=== PATIENT | male | born 1940 | race Caucasian/White ===

== ENCOUNTER 2016-12-11 06:30 | Outpatient (CLI) | payer MEDICARE, OTHER | END 2016-12-11 06:31 | disposition home or self-care (01) | LOC: LAB.R 06:30 | PROVIDERS: ATTEND Podiatrist | DX: L03.031 Cellulitis of right toe (principal) | CPT/HCPCS: 87070; 87205 ==

== ENCOUNTER 2017-03-25 09:10 | Outpatient (CLI) | payer MEDICARE, OTHER ==
--- NOTE | 2017-03-26 11:42 | DEXA Report ---
REVISED: THIS REPORT WAS ORIGINALLY SIGNED ON 03/26/2017 @ 1315. NO CHANGES WERE MADE TO THE REPORT. [facility] WAS RE[facility] ON . DEXA SCAN: 03/25/2017 CLINICAL HISTORY: Long-term prednisone use. History of ileostomy. TECHNIQUE: Dual energy x-ray absorptiometry (DXA) was performed on a [employer] system. Regions measured are the AP spine, femoral neck, and, if needed, forearm. COMPARISON: None. In accordance with the International Society for Clinical Densitometry (ISCD) guidelines, data from previous exams may be reanalyzed using current recommendations and techniques. This is done to allow a more accurate basis for comparison with the current study. FINDINGS The data for the lumbar spine is as follows: REGION BMD (g/cm/cm) T-SCORE Z-SCORE L1 1.119 -0.3 -0.4 L2 1.151 -0.7 -0.8 L3 1.214 -0.2 -0.3 L4 1.189 -0.4 -0.5 TOTAL 1.171 -0.4 -0.5 NOTE: All evaluable vertebrae are used for classification. The data for the hip is as follows: REGION BMD (g/cm/cm) T-SCORE Z-SCORE Neck 0.855 -1.7 -0.7 TOTAL 1.011 -0.6 -0.1 NOTE: The femoral neck or total proximal femur, whichever is lowest, is used for classification. IMPRESSION: BONE MINERAL DENSITY ABOVE IN THIS MALE PATIENT. BASED ON BONE MINERAL DENSITY IN THE FEMORAL NECK FRACTURE RISK IS INCREASED. RECOMMENDATION: Patients with diagnosis of osteoporosis or osteopenia should have regular bone mineral density assessment. For those eligible for Medicare, routine testing is allowed once every 2 years. Testing frequency can be increased for patients who have rapidly progressing disease or for those who are receiving medical therapy to restore bone mass. COMMENT: World Health Organization (WHO) definitions for osteoporosis and osteopenia: NORMAL BMD: T-score at -1.0 or higher, fracture risk is low. OSTEOPENIA BMD: T-score between -1.0 and -2.5, fracture risk is increased. OSTEOPOROSIS BMD: T-score at -2.5 or lower, fracture risk high. National Osteoporosis Foundation recommends: 1. Obtain adequate dietary calcium (at least 1200 mg per day) and vitamin D (400 -800 international units per day). 2. Participate, as appropriate, in regular weightbearing and muscle- strengthening exercise. 3. Avoid tobacco use and reduce alcohol and caffeine intake. 4. For more detailed information see the website at www.NOF.org. MTDD
== END 2017-03-25 09:11 | disposition home or self-care (01) ==
LOC: DI 09:10
PROVIDERS: ATTEND Internal Medicine
DX: M85.88 Other specified disorders of bone density and structure, other site (principal)
CPT/HCPCS: 77080

== ENCOUNTER 2017-07-11 13:10 | Emergency (ER) | payer MEDICARE, OTHER ==
[2017-07-11] MEDS ORDERED: BUFFERED LIDOCAINE 10 ML SYRINGE SUBQ STA (14:52)
--- NOTE | 2017-07-11 14:55 | ED Physician Documentation ---
PD HPI HEAD INJURY - Stated complaint Stated Complaint: HEAD INJ - Chief complaint Chief Complaint: Laceration - History obtained from History obtained from: Patient - History of Present Illness Mechanism of head injury: Other (He is up-to-date on tetanus. He was taking out the [employer] tree and cleaning up after, he tripped on a chair on his patio and fell forward into a railing impacting the left yazidi and forehead with 2 lacerations. Pain is minimal. No loss of consciousness, no other injuries, no anticoagulants.) Review of Systems Constitutional: denies: Fever, Chills GI: denies: Abdominal Pain, Nausea, Vomiting Musculoskeletal: denies: Neck pain, Back pain PD PAST MEDICAL HISTORY - Past Medical History Past Medical History: Yes Cardiovascular: Hypertension Respiratory: Sleep apnea Endocrine/Autoimmune: HyPOthyroidism, Other GI: Ulcerative colitis, Other : Other HEENT: Chronic vision loss, Chronic hearing loss Psych: None - Past Surgical History Past Surgical History: Yes General: Cholecystectomy, Bowel surgery, EGD, Other - Present Medications Home Medications: Ambulatory Orders Medication Instructions Recorded Confirmed Carvedilol [Coreg] 6.25 mg PO DAILY 10/25/13 07/11/17 Levothyroxine Sodium [Synthroid] 175 mcg PO DAILY 10/25/13 07/11/17 Multivitamin [Multivitamins] 1 cap PO DAILY 09/18/15 07/11/17 Pantoprazole [Protonix] 40 mg PO BID 06/30/16 07/11/17 - Allergies Allergies/Adverse Reactions: Allergies Allergy/AdvReac Type Severity Reaction Status Date / Time Penicillins Allergy Severe Respiratory Verified 07/11/17 13:25 Latex, Natural Rubber Allergy Intermediate Itching Verified 07/11/17 13:25 amoxicillin trihydrate * Allergy Unknown Verified 07/11/17 13:25 [From Augmentin] ciprofloxacin [From Cipro] Allergy Unknown Verified 06/30/16 23:35 ciprofloxacin HCl * Allergy Unknown Verified 07/11/17 13:25 [From Cipro] potassium clavulanate * Allergy Unknown Verified 07/11/17 13:25 [From Augmentin] quinine Allergy Unknown Verified 07/11/17 13:25 - Social History Does the pt smoke?: No Smoking Status: Never smoker Does the pt drink ETOH?: No Does the pt have substance abuse?: No - Immunizations Immunizations are current?: Yes - POLST Patient has POLST: No PD ED PE NORMAL - Vitals Vital signs reviewed: Yes - General General: Alert and oriented X 3, No acute distress - HEENT HEENT: PERRL, EOMI, Other (There is a 4 cm vertical laceration over the upper mid forehead, and a 2 cm curved laceration that is a flap over the left yazidi. 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 Eye Opening: Spontaneous Motor: Obeys Commands Verbal: Oriented GCS Score: 15 - Psych Psych: Normal mood, Normal affect Results - Vitals Vitals: Vital Signs - 24 hr 07/11/17 07/11/17 13:23 16:55 Temperature 36.3 C L 36.5 C Heart Rate 79 66 Respiratory 18 18 Rate Blood Pressure 147/90 H 152/80 H O2 Saturation 97 100 Oxygen O2 Source Room air - Rads (name of study) CT Head Radiology: EMP read contemporaneously (NAD) Procedures - Laceration (location) forehead Length in cm: 4 Wound type: Linear Anesthesia: Lidocaine 1%, With bicarb Wound Preparation: Irrigated copiously NS Skin layer closure: Nylon, Running, Size #-0 - enter number (5-0) Other: Tetanus UTD Complexity: Simple Left yazidi/scalp Length in cm: 2 Wound type: Curved Anesthesia: Lidocaine 1%, With bicarb Wound Preparation: Irrigated copiously NS Skin layer closure: Size #-0 - enter number (5-0), Sutures - enter # (3), Other (vicryl) Complexity: Simple Departure - Departure Disposition: 01 Home, Self Care Clinical Impression: Facial laceration Qualifiers: Encounter type: initial encounter Qualified Code(s): S01.81XA - Laceration without foreign body of other part of head, initial encounter Scalp laceration Qualifiers: Encounter type: initial encounter Qualified Code(s): S01.01XA - Laceration without foreign body of scalp, initial encounter Head injury Qualifiers: Encounter type: initial encounter Qualified Code(s): S09.90XA - Unspecified injury of head, initial encounter Condition: Good Record reviewed to determine appropriate education?: Yes Instructions: ED Laceration Facial Sutr Tape Comments: Come back for any signs of infection which would include: Redness, swelling, drainage, increased pain, or fevers. Follow-up with your physician in 7 days for removals of the suture on your forehead, the sutures on the yazidi will dissolve on their own. Your blood pressure was elevated today on check into the emergency department. This does not mean that you have hypertension, it is a common phenomenon to come to the emergency department and have elevated blood pressure. I recommend that you see your primary care physician within the week to have it rechecked when you are feeling better. Discharge Date/Time: 07/11/17 16:54
[2017-07-11] MEDS ORDERED: BUFFERED LIDOCAINE 10 ML SYRINGE ONE (15:00)
[2017-07-11 16:56] VITALS: BP 152/80
--- NOTE | 2017-07-11 16:57 | CT Report ---
EXAM: CT HEAD EXAM DATE: 07/11/2017 03:31 PM. CLINICAL HISTORY: Headache. COMPARISON: None. TECHNIQUE: Multiaxial CT images were obtained from the foramen magnum to the vertex. Reformats: Coron al. IV contrast: None. In accordance with CT protocol optimization, one or more of the following dose reduction techniques w ere utilized for this exam: automated exposure control, adjustment of mA and/or KV based on patient s ize, or use of iterative reconstructive technique. FINDINGS: Parenchyma: No intraparenchymal hemorrhage. No evidence of mass, midline shift, or CT findings of inf arction. Villa-white differentiation is distinct. Extraaxial Spaces: Normal for age. No subdural or epidural collections identified. Ventricles: Normal in size and position. Sinuses and Orbits: Patient has undergone sinus surgery. No acute abnormalities are seen. Bones: No evidence of fracture or calvarial defect. Other: There is mild frontal scalp soft tissue swelling. IMPRESSION: No acute intracranial CT abnormality. [facility] Referring Provider Line: [phone] SITE ID: [id number]
== END 2017-07-11 16:54 | disposition home or self-care (01) ==
LOC: ED 13:10
DX: S01.81XA Laceration without foreign body of other part of head, initial encounter (principal); S01.01XA Laceration without foreign body of scalp, initial encounter; S09.90XA Unspecified injury of head, initial encounter; W01.198A Fall on same level from slipping, tripping and stumbling with subsequent striking against other object, initial encounter; Y93.01 Activity, walking, marching and hiking; Y92.007 Garden or yard of unspecified non-institutional (private) residence as the place of occurrence of the external cause; I10 Essential (primary) hypertension; E03.9 Hypothyroidism, unspecified
CPT/HCPCS: 12001; 12013; 70450; 99283; 99284

== ENCOUNTER 2017-08-26 10:49 | Emergency (ER) | payer MEDICARE, OTHER ==
--- NOTE | 2017-08-26 14:33 | Ultrasound Report ---
LEFT LEG VENOUS DUPLEX: 08/26/2017 CLINICAL INDICATION: Pain, swelling. TECHNIQUE: Real-time sonographic vascular imaging was performed by the special needs child caregiver through the left leg utilizing both color flow and Doppler spectral analysis. Multiple sales representative printing static images were saved for review. FINDINGS: A left lower extremity venous sonogram is performed revealing the common femoral, superficial femoral, profunda femoris, and popliteal veins to be adequately visualized without intraluminal defects. There is normal venous compression, augmentation, phasicity, and spontaneity of venous flow. In the calf, the visualized more cephalad portions of posterior tibial and peroneal veins are grossly compressible, without filling defects. Superficial thrombophlebitis is seen in the left greater saphenous vein below the level of the knee. IMPRESSION: NO EVIDENCE OF DEEP VENOUS THROMBOSIS. SUPERFICIAL THROMBOPHLEBITIS IN THE CALF. TD: 08/26/2017 14:32 MTDMarie
--- NOTE | 2017-08-26 14:43 | ED Physician Documentation ---
History of Present Illness - Stated complaint Stated Complaint: LEFT LEG PAIN - Chief complaint Chief Complaint: Ext Problem - Additonal information Additional information: hx from pt 77 male to ER with l leg pain and swelling hx phlebitis no CP or SOA no injury Review of Systems Constitutional: denies: Fever, Chills Cardiac: denies: Chest pain / pressure Respiratory: denies: Dyspnea Musculoskeletal: reports: Extremity pain, Extremity swelling PD PAST MEDICAL HISTORY - Past Medical History Past Medical History: Yes Cardiovascular: Hypertension Respiratory: Sleep apnea Endocrine/Autoimmune: HyPOthyroidism, Other GI: Ulcerative colitis, Other : Other HEENT: Chronic vision loss, Chronic hearing loss Psych: None - Past Surgical History Past Surgical History: Yes General: Cholecystectomy, Bowel surgery, EGD, Other - Present Medications Home Medications: Ambulatory Orders Medication Instructions Recorded Confirmed Carvedilol [Coreg] 6.25 mg PO DAILY 10/25/13 07/11/17 Levothyroxine Sodium [Synthroid] 175 mcg PO DAILY 10/25/13 07/11/17 Multivitamin [Multivitamins] 1 cap PO DAILY 09/18/15 07/11/17 Pantoprazole [Protonix] 40 mg PO BID 06/30/16 07/11/17 - Allergies Allergies/Adverse Reactions: Allergies Allergy/AdvReac Type Severity Reaction Status Date / Time Penicillins Allergy Severe Respiratory Verified 07/11/17 13:25 Latex, Natural Rubber Allergy Intermediate Itching Verified 07/11/17 13:25 amoxicillin trihydrate * Allergy Unknown Verified 07/11/17 13:25 [From Augmentin] ciprofloxacin [From Cipro] Allergy Unknown Verified 06/30/16 23:35 ciprofloxacin HCl * Allergy Unknown Verified 07/11/17 13:25 [From Cipro] potassium clavulanate * Allergy Unknown Verified 07/11/17 13:25 [From Augmentin] quinine Allergy Unknown Verified 07/11/17 13:25 - Social History Does the pt smoke?: No Smoking Status: Never smoker Does the pt drink ETOH?: No Does the pt have substance abuse?: No - Immunizations Immunizations are current?: Yes - POLST Patient has POLST: No PD ED PE NORMAL - Vitals Vital signs reviewed: Yes - Neck Neck: Supple, no meningeal sign - Cardiac Cardiac: RRR - Respiratory Respiratory: No respiratory distress, Clear bilaterally - Abdomen Abdomen: Soft, Non tender - Derm Derm: Normal color - Extremities Extremities: Other (+ mild edema, some dilated superficial veins medial calf, no popliteal cord, MSV intact) Results - Vitals Vitals: Vital Signs - 24 hr 08/26/17 10:53 Temperature 37.1 C Heart Rate 95 Respiratory 18 Rate Blood Pressure 147/83 H O2 Saturation 98 Oxygen O2 Source Room air Departure - Departure Disposition: 01 Home, Self Care Clinical Impression: Superfic phlebitis-leg Qualifiers: Laterality: left Qualified Code(s): I80.02 - Phlebitis and thrombophlebitis of superficial vessels of left lower extremity Condition: Good Instructions: ED Phlebitis Superficial Follow-Up: Lore Menchaca PA [Primary Care Provider] - (for a recheck next week) Comments: At this point you have some clot in the superficial veins of your leg but no deep vein clot. So you do not to be on blood thinners at this time You should elevate your leg and apply warm compresses for 20 min several times a day. And you should have a repeat ultrasound in a week if the symptoms persist - it is possible for the superficial clots to extend into the deep vein system Forms: Activity restrictions
[2017-08-26 15:01] VITALS: BP 136/78
== END 2017-08-26 15:01 | disposition home or self-care (01) ==
LOC: ED 10:49
DX: I80.02 Phlebitis and thrombophlebitis of superficial vessels of left lower extremity (principal); I10 Essential (primary) hypertension; E03.9 Hypothyroidism, unspecified; Z87.19 Personal history of other diseases of the digestive system
CPT/HCPCS: 99283

== ENCOUNTER 2018-04-14 11:36 | Outpatient (CLI) | payer MEDICARE, OTHER | END 2018-04-14 11:37 | disposition home or self-care (01) | LOC: LAB 11:36 | PROVIDERS: ATTEND Physician Assistant | DX: E03.8 Other specified hypothyroidism (principal) | CPT/HCPCS: 36415; 84443 ==

== ENCOUNTER 2018-09-28 16:22 | Emergency (ER) | payer MEDICARE, OTHER ==
--- NOTE | 2018-09-28 17:38 | XRAY Report ---
Reason: fell off ladder, buttock pain Procedure Date: 09/28/2018 Accession Number: [id number] / [id number] Procedure: XR - Hip w/Pelvis 2-3V RT CPT Code: FULL RESULT: EXAM: RIGHT HIP RADIOGRAPHY EXAM DATE: 09/28/2018 05:12 PM. CLINICAL HISTORY: Fell off ladder, buttock pain. COMPARISON: None. TECHNIQUE: 2 views. FINDINGS: Bones: No acute fracture identified. Joints: Mild degenerative changes. No dislocation. Soft Tissues: Surgical wires noted. IMPRESSION: No acute osseus abnormality. [facility]
--- NOTE | 2018-09-28 17:45 | ED Physician Documentation ---
PD HPI Fall - Stated complaint Stated Complaint: FALL OFF LADDER - Chief complaint Chief Complaint: Trauma Hd/Nk - History obtained from History obtained from: Patient, Family - History of Present Illness Mechanism of injury: Lost balance Fall distance: Less than 5ft (on ladder on lower steps and fell left/backward landing onto buttock then back onto head) Where injury occurred: Home (He remembers falling then felt he awoke on the ground. Went into house and rested for a little while, then told his about the fall. She was concerned about his seeming tired and apparent brief LOC. Otherwise interacting okay.) Timing - onset: Today Injury(ies) location: Head, Other (left gluteal area) Quality of pain: Throbbing, Aching (gluteal area. Minimal pain left side of head with abrasion.) Associated symptoms: LOC. No: AMS, Weakness, Paresthesias, Nausea / vomiting Worsens with: Palpation Similar symptoms before: Has not had sx before Recently seen: Not recently seen Review of Systems Constitutional: denies: Fever, Chills Nose: denies: Rhinorrhea / runny nose, Congestion Throat: denies: Sore throat Cardiac: denies: Chest pain / pressure Respiratory: denies: Cough GI: denies: Abdominal Pain Skin: reports: Abrasion (s) (left side of head) Musculoskeletal: reports: Extremity pain (left gluteal area). denies: Neck pain, Back pain Neurologic: reports: Head injury. denies: Focal weakness, Numbness, Altered mental status, Headache (not diffusely, just sore at abrasion area) PD PAST MEDICAL HISTORY - Past Medical History Past Medical History: Yes Cardiovascular: Hypertension Respiratory: Sleep apnea Endocrine/Autoimmune: HyPOthyroidism, Other GI: Ulcerative colitis, Other : Other HEENT: Chronic vision loss, Chronic hearing loss Psych: None Other Past Medical History: barrets esophagus - Past Surgical History Past Surgical History: Yes General: Cholecystectomy, Bowel surgery, EGD, Other - Present Medications Home Medications: Ambulatory Orders Medication Instructions Recorded Confirmed Carvedilol [Coreg] 6.25 mg PO DAILY 10/25/13 09/23/17 Levothyroxine Sodium [Synthroid] 175 mcg PO DAILY 10/25/13 09/23/17 Multivitamin [Multivitamins] 1 cap PO DAILY 09/18/15 09/23/17 Pantoprazole Sodium 20 mg BID 09/23/17 09/23/17 - Allergies Allergies/Adverse Reactions: Allergies Allergy/AdvReac Type Severity Reaction Status Date / Time Penicillins Allergy Severe Respiratory Verified 09/28/18 16:39 Latex, Natural Rubber Allergy Intermediate Itching Verified 09/28/18 16:39 amoxicillin trihydrate * Allergy Unknown Verified 09/28/18 16:39 [From Augmentin] ciprofloxacin [From Cipro] Allergy Unknown Verified 09/28/18 16:39 ciprofloxacin HCl * Allergy Unknown Verified 09/28/18 16:39 [From Cipro] potassium clavulanate * Allergy Unknown Verified 09/28/18 16:39 [From Augmentin] quinine Allergy Unknown Verified 09/28/18 16:39 - Social History Does the pt smoke?: No Smoking Status: Never smoker Does the pt drink ETOH?: No Does the pt have substance abuse?: No - Immunizations Immunizations are current?: Yes - POLST Patient has POLST: No PD ED PE NORMAL - Vitals Vital signs reviewed: Yes - General General: Alert and oriented X 3, No acute distress, Well developed/nourished - HEENT HEENT: PERRL, EOMI, Pharynx benign, Other (left frontal/parietal area with mild swelling and abrasion. Locally tender. 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 age related changes. ), See rad report pelvic xray Radiology: Prelim report reviewed (no fractures.), See rad report PD MEDICAL DECISION MAKING - ED course Complexity details: reviewed results, considered differential, d/w patient Departure - Departure Disposition: 01 Home, Self Care Clinical Impression: Fall from ladder Qualifiers: Encounter type: initial encounter Qualified Code(s): W11.XXXA - Fall on and from ladder, initial encounter Head contusion Qualifiers: Encounter type: initial encounter Contusion of head detail: scalp Qualified Code(s): S00.03XA - Contusion of scalp, initial encounter Mild concussion Qualifiers: Encounter type: initial encounter Loss of consciousness presence/duration: with LOC of 30 min or less Qualified Code(s): S06.0X1A - Concussion with loss of consciousness of 30 minutes or less, initial encounter Contusion of buttock Qualifiers: Encounter type: initial encounter Qualified Code(s): S30.0XXA - Contusion of lower back and pelvis, initial encounter Condition: Stable Record reviewed to determine appropriate education?: Yes Instructions: ED Concussion Follow-Up: Lore Menchaca PA [Primary Care Provider] - Comments: Tylenol or ibuprofen if needed for pains. There is no signs of bleeding in the head space on your CT scan. It does sound like he had a mild concussion and expect some headaches and a little lightheaded for a day or 2. Discharge Date/Time: 09/28/18 19:40
[2018-09-28] MEDS ORDERED: ACETAMINOPHEN 325 MG TABLET PO STA (17:57)
--- NOTE | 2018-09-28 19:04 | CT Report ---
Reason: fall short distance from ladder; struck head, LOC Procedure Date: 09/28/2018 Accession Number: [id number] / [id number] Procedure: CT - HEAD WO CPT Code: FULL RESULT: EXAM: CT HEAD EXAM DATE: 09/28/2018 06:18 PM. CLINICAL HISTORY: Fall short distance from ladder; struck head, LOC. COMPARISON: HEAD W/O 07/11/2017 3:26 PM. TECHNIQUE: Multiaxial CT images were obtained from the foramen magnum to the vertex. Reformats: Sagittal and coronal. IV contrast: None. In accordance with CT protocol optimization, one or more of the following dose reduction techniques were utilized for this exam: automated exposure control, adjustment of mA and/or KV based on patient size, or use of iterative reconstructive technique. FINDINGS: Parenchyma: There is mild to moderate nonfocal periventricular white matter hypodensity. Negative for acute intracranial hemorrhage. There is no midline shift or mass-effect. Extraaxial Spaces: No subdural or epidural collections identified. Ventricles: Symmetric in size and normal in position. Sinuses and Orbits: There is mild ethmoid sinus mucosal thickening. There are findings of previous sinus surgery. Mastoid sinuses are clear. No air-fluid levels. Bones: No evidence of fracture or calvarial defect. Other: None. IMPRESSION: 1. Negative for an acute or focal intracranial abnormality. 2. Mild to moderate nonfocal white matter disease. 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 [facility]
[2018-09-28 19:29] VITALS: BP 164/97
== END 2018-09-28 19:40 | disposition home or self-care (01) ==
LOC: ED 16:22
DX: S00.03XA Contusion of scalp, initial encounter (principal); S06.0X1A Concussion with loss of consciousness of 30 minutes or less, initial encounter; S30.0XXA Contusion of lower back and pelvis, initial encounter; S00.01XA Abrasion of scalp, initial encounter; W11.XXXA Fall on and from ladder, initial encounter; Y92.009 Unspecified place in unspecified non-institutional (private) residence as the place of occurrence of the external cause; I10 Essential (primary) hypertension; E03.9 Hypothyroidism, unspecified
CPT/HCPCS: 70450; 73502; 99283; 99284; A9270

== ENCOUNTER 2020-07-24 08:00 | Outpatient (CLI) | payer MEDICARE, OTHER ==
[2020-07-24 17:24] LABS: BASOPHILS # (AUTO) 0.1 10^3/uL (0.0-0.1); EOSINOPHILS # (AUTO) 0.4 10^3/uL (0.0-0.7); EOSINOPHILS % (AUTO) 5.9 %; HGB - HEMOGLOBIN 13.7 g/dL (14.0-18.0); LYMPHOCYTES # (AUTO) 2.1 10^3/uL (1.5-3.5); LYMPHOCYTES % (AUTO) 29.5 %; MEAN CORPUSCULAR HEMOGLOBIN 32.8 pg (27.0-31.0); MEAN CORPUSCULAR HGB CONC 32.8 g/dL (32.0-36.0); MEAN PLATELET VOLUME 10.9 fL (7.4-11.4); MONOCYTES # (AUTO) 0.7 10^3/uL (0.0-1.0); MONOCYTES % (AUTO) 9.9 %; NEUTROPHILS # (AUTO) 3.7 10^3/uL (1.5-6.6); NEUTROPHILS % (AUTO) 53.4 %; PLT - PLATELET COUNT 147 10^3/uL (130-450); RED BLOOD COUNT 4.18 10^6/uL (4.70-6.10); RED CELL DISTRIBUTION WIDTH 14.1 % (12.0-15.0)
[2020-07-24 17:53] LABS: URIC ACID 6.3 mg/dL (2.6-7.2)
[2020-07-24 17:55] LABS: FERRITIN 23.3 ng/mL (23.9-336.2)
== END 2020-07-24 23:59 | disposition home or self-care (01) ==
LOC: LAB 08:00
PROVIDERS: ATTEND Registered Nurse
DX: D69.6 Thrombocytopenia, unspecified (principal); M10.9 Gout, unspecified; D50.8 Other iron deficiency anemias
CPT/HCPCS: 36415; 82607; 82728; 82746; 83540; 84466; 84550; 85025

== ENCOUNTER 2020-11-02 19:23 | Emergency (ER) | payer MEDICARE, OTHER ==
[2020-11-02 20:03] LABS: BASOPHILS % (AUTO) 0.2 %; EOSINOPHILS % (AUTO) 0.1 %; HCT - HEMATOCRIT 42.2 % (42.0-52.0); HGB - HEMOGLOBIN 14.4 g/dL (14.0-18.0); LYMPHOCYTES # (AUTO) 1.4 10^3/uL (1.5-3.5); LYMPHOCYTES % (AUTO) 14.1 %; MEAN CORPUSCULAR HEMOGLOBIN 32.8 pg (27.0-31.0); MEAN CORPUSCULAR HGB CONC 34.1 g/dL (32.0-36.0); MEAN CORPUSCULAR VOLUME 96.1 fL (80.0-94.0); MEAN PLATELET VOLUME 10.1 fL (7.4-11.4); MONOCYTES # (AUTO) 0.4 10^3/uL (0.0-1.0); MONOCYTES % (AUTO) 4.2 %; NEUTROPHILS # (AUTO) 8.1 10^3/uL (1.5-6.6); PLT - PLATELET COUNT 153 10^3/uL (130-450); RED BLOOD COUNT 4.39 10^6/uL (4.70-6.10); RED CELL DISTRIBUTION WIDTH 13.5 % (12.0-15.0)
[2020-11-02 20:18] LABS: ALBUMIN 3.9 g/dL (3.2-5.5); ALBUMIN/GLOBULIN RATIO 1.1 (1.0-2.2); BILIRUBIN,TOTAL 1.1 mg/dL (0.2-1.0); CALCIUM 9.2 mg/dL (8.5-10.3); CREATININE 1.6 mg/dL (0.6-1.2); POTASSIUM 4.1 mmol/L (3.5-5.0); TOTAL PROTEIN 7.4 g/dL (6.7-8.2)
[2020-11-02] MEDS ORDERED: carvediloL 12.5 MG TABLET PO STA (22:29)
[2020-11-02] MEDS ORDERED: ONDANSETRON 4 MG/2 ML VIAL IVP STA (22:47)
[2020-11-02] MEDS ORDERED: MECLIZINE 12.5 MG TABLET PO STA (22:48)
[2020-11-02] MEDS ORDERED: ONDANSETRON ODT 4 MG TABLET TL STA (23:22)
[2020-11-03 00:07] VITALS: BP 167/85
--- NOTE | 2020-11-03 00:29 | ED Physician Documentation ---
History of Present Illness - Stated complaint Stated Complaint: DIZZINESS/VOMITING - Chief complaint Chief Complaint: Neuro - History obtained from History obtained from: Patient - Additonal information Additional information: 80-year-old man with past medical history of ulcerative colitis status post colostomy 40 years ago, high blood pressure, hypothyroidism, GERD, chronic dizziness over the past year, presents with worsening dizziness over the past couple of days associated with nausea and vomiting. He states that last night he got up to go to the bathroom and the room was spinning. He was able to complete his trip but then this morning he was still dizzy. He has had 6 episodes of nonbloody nonbilious nausea and vomiting today associated with sensation of dizziness. he also states that his colostomy bag has had reduced output. He does endorse taking less orally. Review of Systems Ten Systems: 10 systems reviewed and negative Constitutional: denies: Fever, Chills Cardiac: denies: Chest pain / pressure Respiratory: denies: Dyspnea GI: reports: Nausea, Vomiting. denies: Abdominal Pain, Abdominal Swelling, Bloody / black stool : denies: Dysuria, Frequency Neurologic: denies: Generalized weakness PD PAST MEDICAL HISTORY - Past Medical History Past Medical History: Yes Cardiovascular: Hypertension Respiratory: Sleep apnea Endocrine/Autoimmune: HyPOthyroidism, Other GI: Ulcerative colitis, Other : Other HEENT: Chronic vision loss, Chronic hearing loss Psych: None - Past Surgical History Past Surgical History: Yes General: Cholecystectomy, Bowel surgery, EGD, Other - Present Medications Home Medications: Ambulatory Orders Medication Instructions Recorded Confirmed Levothyroxine Sodium [Synthroid] 175 mcg PO DAILY 10/25/13 11/02/20 carvediloL [Coreg] 6.25 mg PO DAILY 10/25/13 11/02/20 Multivitamin [Multivitamins] 1 cap PO DAILY 09/18/15 11/02/20 Pantoprazole Sodium 20 mg BID 09/23/17 11/02/20 Cholecalciferol (Vitamin D3) 1,250 11/02/20 [Vitamin D3] Cyanocobalamin (Vitamin B-12) 1,000 11/02/20 [Vitamin B-12] Meclizine [Antivert] 25 mg PO Q6H PRN #30 tablet 11/03/20 Ondansetron Odt [Zofran Odt] 4 mg TL Q6H PRN #10 tablet 11/03/20 - Allergies Allergies/Adverse Reactions: Allergies Allergy/AdvReac Type Severity Reaction Status Date / Time Penicillins Allergy Severe Respiratory Verified 11/02/20 19:31 Latex, Natural Rubber Allergy Intermediate Itching Verified 11/02/20 19:31 amoxicillin trihydrate * Allergy Unknown Verified 11/02/20 19:31 [From Augmentin] ciprofloxacin [From Cipro] Allergy Unknown Verified 11/02/20 19:31 ciprofloxacin HCl * Allergy Unknown Verified 11/02/20 19:31 [From Cipro] potassium clavulanate * Allergy Unknown Verified 11/02/20 19:31 [From Augmentin] quinine Allergy Unknown Verified 11/02/20 19:31 - Social History Does the pt smoke?: No Smoking Status: Never smoker Does the pt drink ETOH?: No Does the pt have substance abuse?: No - Immunizations Immunizations are current?: Yes - POLST Patient has POLST: No PD ED PE NORMAL - Vitals Vital signs reviewed: Yes - General General: Alert and oriented X 3, No acute distress, Well developed/nourished - HEENT HEENT: Atraumatic, PERRL, EOMI - Neck Neck: Supple, no meningeal sign - Cardiac Cardiac: RRR - Respiratory Respiratory: No respiratory distress, Clear bilaterally - Abdomen Abdomen: Normal bowel sounds, Soft, Non tender, Non distended, Other (colostomy pink with brown stool extruding from it. ) - Derm Derm: Normal color - Extremities Extremities: No deformity - Neuro Neuro: Alert and oriented X 3, pot puncher 2-12 intact, No motor deficit, No sensory deficit, Normal speech, Other (ambulatory without difficulty) - Psych Psych: Normal mood, Normal affect Results - Vitals Vitals: Vital Signs - 24 hr 11/02/20 11/02/20 11/02/20 19:31 19:45 22:02 Temperature 36.6 C Heart Rate 88 76 81 Heart Rate [ Sitting] Heart Rate [ Standing] Heart Rate [ Supine] Respiratory 18 15 14 Rate Blood Pressure 151/79 H 154/86 H 153/85 H Blood Pressure [Sitting] Blood Pressure [Standing] Blood Pressure [Supine] O2 Saturation 100 100 97 11/02/20 11/02/20 11/03/20 22:06 22:43 00:00 Temperature 36.8 C Heart Rate 83 70 Heart Rate [ 86 Sitting] Heart Rate [ 88 Standing] Heart Rate [ 75 Supine] Respiratory 17 20 Rate Blood Pressure 158/81 H 167/85 H Blood Pressure 165/96 H [Sitting] Blood Pressure 153/85 H [Standing] Blood Pressure 169/90 H [Supine] O2 Saturation 98 96 11/03/20 00:50 Temperature Heart Rate Heart Rate [ Sitting] Heart Rate [ Standing] Heart Rate [ Supine] Respiratory 16 Rate Blood Pressure Blood Pressure [Sitting] Blood Pressure [Standing] Blood Pressure [Supine] O2 Saturation Oxygen O2 Source Room air - Labs Labs: Laboratory Tests 11/02/20 11/02/20 19:58 19:58 WBC 10.0 RBC 4.39 L Hgb 14.4 Hct 42.2 MCV 96.1 H MCH 32.8 H MCHC 34.1 RDW 13.5 Plt Count 153 MPV 10.1 Neut # (Auto) 8.1 H Lymph # (Auto) 1.4 L [place] # (Auto) 0.4 Eos # (Auto) 0.0 Baso # (Auto) 0.0 Absolute Nucleated RBC 0.00 Nucleated RBC % 0.0 Sodium 138 Potassium 4.1 Chloride 103 Carbon Dioxide 26 Anion Gap 9.0 BUN 30 H Creatinine 1.6 H Estimated GFR (MDRD) 42 L Glucose 117 H Calcium 9.2 Total Bilirubin 1.1 H AST 27 ALT 18 Alkaline Phosphatase 69 Total Protein 7.4 Albumin 3.9 Globulin 3.5 Albumin/Globulin Ratio 1.1 PD MEDICAL DECISION MAKING - ED course ED course: 80-year-old man presented with vertiginous-like symptoms and nausea, improved with meclizine and oral Zofran. He has a completely normal neurologic exam and is now asymptomatic. Strict return precautions given. Patient will follow up with his primary doctor. Departure - Departure Disposition: 01 Home, Self Care Clinical Impression: Vertigo, Nausea Condition: Good Instructions: ED Vertigo Unspecified Prescriptions: Meclizine [Antivert] 25 mg PO Q6H PRN #30 tablet PRN Reason: Vertigo Ondansetron Odt [Zofran Odt] 4 mg TL Q6H PRN #10 tablet PRN Reason: Nausea / Vomiting Comments: You were seen in the emergency department for dizziness and nausea. You were given meclizine and zofran in the emergency department with improvement. We also did labwork and an ekg that did not have alarming findings. Please follow up with your primary doctor this week. You may benefit from evaluation by an ENT. Return to the Emergency department if you experience any new or worsening symptoms or have other concerns. [facility] (ENT) [address] [address] ~23.5 de Discharge Date/Time: 11/03/20 00:51
== END 2020-11-03 00:51 | disposition home or self-care (01) ==
LOC: ED 19:23
DX: R42 Dizziness and giddiness (principal); R11.2 Nausea with vomiting, unspecified; Z93.3 Colostomy status; Z87.19 Personal history of other diseases of the digestive system; I45.10 Unspecified right bundle-branch block; I10 Essential (primary) hypertension; K21.9 Gastro-esophageal reflux disease without esophagitis; E03.9 Hypothyroidism, unspecified
CPT/HCPCS: 36415; 80053; 85025; 93005; 99283; 99284; A9270; Q0162

== ENCOUNTER 2020-11-08 14:00 | Outpatient (CLI) | payer MEDICARE, OTHER ==
--- NOTE | 2020-11-08 17:05 | XRAY Report ---
PROCEDURE: Sacrum/Coccyx INDICATIONS: COCCYX PAIN TECHNIQUE: 3 views of the sacrum and coccyx acquired. COMPARISON: None FINDINGS: Bones: No fractures or dislocations. No suspicious bony lesions. Soft tissues: Visualized bowel gas pattern is normal. No suspicious soft tissue densities. IMPRESSION: No trauma is found, no evidence of osteolytic or blastic bone lesions involving the pelvis in the are a included on this study is seen. MR scanning is generally considered the gold standard for accurate assessment of coccygeal and sacral pain. Follow-up by MRI may be warranted. Reviewed by: Gamal Ann MD on 11/08/2020 5:04 PM PDT Approved by: Gamal Ann MD on 11/08/2020 5:04 PM PDT Station ID: [id number]
== END 2020-11-08 14:01 | disposition home or self-care (01) ==
LOC: DI 14:00
PROVIDERS: ATTEND Nurse Practitioner Family
DX: M53.3 Sacrococcygeal disorders, not elsewhere classified (principal)

== ENCOUNTER 2020-11-22 08:56 | Outpatient (CLI) | payer MEDICARE, OTHER ==
--- NOTE | 2020-11-22 16:25 | MRI Report ---
PROCEDURE: Brain W/O INDICATIONS: DIZZINESS, VERTIGO TECHNIQUE: Noncontrast axial T1 spin echo, axial T2 fast spin echo, sagittal and axial FLAIR, coronal T2 fast sp in echo, axial gradient echo, axial diffusion and ADC through the brain. COMPARISON: None. FINDINGS: Image quality: Excellent. CSF Spaces: Basal cisterns are patent. No extra-axial fluid collections. Ventricles are normal in size and shape. Brain: No intracranial masses or hemorrhage. There is mild to moderate diffuse volume loss. There i s moderate periventricular and subcortical white matter chronic microvascular ischemic change. Villa/white matter interface is normal. Brainstem appears normal. Diffusion-weighted images demonstr ate no acute ischemic insult. No chronic ischemic insults. Normal intravascular flow voids are pres ent. Skull and face: Calvarium has normal marrow signal. Orbits appear normal. Sinuses: Sinuses and mastoids are clear. Prior functional endoscopic sinus surgery. IMPRESSION: 1. No acute intracranial disease process. 2. No areas of acute or chronic infarction. 3. No abnormal intracranial mass or mass effect. 4. Mild to moderate diffuse cerebral volume loss. 5. Moderate chronic microvascular ischemic changes. Reviewed by: Becka Chisholm MD, PhD on 11/22/2020 4:23 PM PDT Approved by: Becka Chisholm MD, PhD on 11/22/2020 4:23 PM PDT Station ID: [id number]
== END 2020-11-22 08:57 | disposition home or self-care (01) ==
LOC: DI 08:56
PROVIDERS: ATTEND Registered Nurse
DX: R42 Dizziness and giddiness (principal)

== ENCOUNTER 2021-02-01 07:00 | Outpatient (CLI) | payer MEDICARE, OTHER | END 2021-02-01 23:59 | disposition home or self-care (01) | LOC: LAB.R 07:00 | PROVIDERS: ATTEND Podiatrist | DX: L89.892 Pressure ulcer of other site, stage 2 (principal) | CPT/HCPCS: 87070; 87077; 87181; 87205 ==

== ENCOUNTER 2021-02-01 17:00 | Outpatient (CLI) | payer MEDICARE, OTHER ==
--- NOTE | 2021-02-01 22:48 | XRAY Report ---
PROCEDURE: Toe(s) RT INDICATIONS: 2ND TOE ULCER TECHNIQUE: 3 views of the second toe acquired. COMPARISON: Radiographs 03/14/2016 FINDINGS: Bones: No acute fractures or dislocations. No suspicious bony lesions. No definite focal cortical destruction is seen to suggest osteomyelitis radiographically. Degenerative changes are seen in the t oes and at the first metatarsophalangeal joint. Soft tissues: No suspicious soft tissue densities. IMPRESSION: No focal cortical obstruction is seen to suggest osteomyelitis radiographically. If symptoms persist or there is continued clinical concern, MRI may be obtained for more sensitive evaluation. Reviewed by: Marcos Navarro MD on 02/01/2021 10:47 PM PDT Approved by: Marcos Navarro MD on 02/01/2021 10:47 PM PDT Station ID: [id number]
== END 2021-02-01 17:01 | disposition home or self-care (01) ==
LOC: DI 17:00
PROVIDERS: ATTEND Podiatrist
DX: L97.909 Non-pressure chronic ulcer of unspecified part of unspecified lower leg with unspecified severity (principal); L89.892 Pressure ulcer of other site, stage 2
CPT/HCPCS: 87070; 87077; 87181; 87205

== ENCOUNTER 2021-08-08 14:43 | Outpatient (CLI) | payer MEDICARE, OTHER ==
[2021-08-08 14:58] LABS: BASOPHILS # (AUTO) 0.1 10^3/uL (0.0-0.1); BASOPHILS % (AUTO) 0.8 %; EOSINOPHILS # (AUTO) 0.3 10^3/uL (0.0-0.7); EOSINOPHILS % (AUTO) 3.6 %; HCT - HEMATOCRIT 43.1 % (42.0-52.0); LYMPHOCYTES # (AUTO) 1.5 10^3/uL (1.5-3.5); LYMPHOCYTES % (AUTO) 21.5 %; MEAN CORPUSCULAR HGB CONC 32.5 g/dL (32.0-36.0); MEAN CORPUSCULAR VOLUME 98.6 fL (80.0-94.0); MEAN PLATELET VOLUME 10.2 fL (7.4-11.4); MONOCYTES # (AUTO) 0.7 10^3/uL (0.0-1.0); MONOCYTES % (AUTO) 10.3 %; NEUTROPHILS # (AUTO) 4.5 10^3/uL (1.5-6.6); NEUTROPHILS % (AUTO) 63.4 %; PLT - PLATELET COUNT 144 10^3/uL (130-450); RED BLOOD COUNT 4.37 10^6/uL (4.70-6.10); RED CELL DISTRIBUTION WIDTH 13.9 % (12.0-15.0); WHITE BLOOD COUNT 7.2 x10^3/uL (4.8-10.8)
[2021-08-08 15:28] LABS: THYROID STIMULATING HORMONE 0.68 uIU/mL (0.34-5.60)
[2021-08-08 15:36] LABS: FERRITIN 10.9 ng/mL (23.9-336.2)
[2021-08-08 15:41] LABS: ALBUMIN 3.9 g/dL (3.2-5.5); ALBUMIN/GLOBULIN RATIO 1.1 (1.0-2.2); BILIRUBIN,TOTAL 0.5 mg/dL (0.2-1.0); CALCIUM 9.3 mg/dL (8.5-10.3); CREATININE 1.7 mg/dL (0.6-1.2); POTASSIUM 4.7 mmol/L (3.5-5.0); TOTAL PROTEIN 7.3 g/dL (6.7-8.2); URIC ACID 5.1 mg/dL (2.6-7.2)
== END 2021-08-08 14:44 | disposition home or self-care (01) ==
LOC: LAB 14:43
PROVIDERS: ATTEND Registered Nurse
DX: I10 Essential (primary) hypertension (principal); D69.6 Thrombocytopenia, unspecified; M10.9 Gout, unspecified; E03.9 Hypothyroidism, unspecified
CPT/HCPCS: 36415; 80053; 82607; 82728; 82746; 83540; 84443; 84466; 84550; 85025

== ENCOUNTER 2022-01-17 10:43 | Outpatient (CLI) | payer MEDICARE, OTHER ==
[2022-01-17 10:58] LABS: BASOPHILS % (AUTO) 0.5 %; EOSINOPHILS # (AUTO) 0.4 10^3/uL (0.0-0.7); EOSINOPHILS % (AUTO) 5.5 %; HCT - HEMATOCRIT 40.8 % (42.0-52.0); HGB - HEMOGLOBIN 12.9 g/dL (14.0-18.0); LYMPHOCYTES # (AUTO) 1.5 10^3/uL (1.5-3.5); LYMPHOCYTES % (AUTO) 19.1 %; MEAN CORPUSCULAR HEMOGLOBIN 31.9 pg (27.0-31.0); MEAN CORPUSCULAR HGB CONC 31.6 g/dL (32.0-36.0); MEAN PLATELET VOLUME 10.5 fL (7.4-11.4); MONOCYTES # (AUTO) 0.6 10^3/uL (0.0-1.0); MONOCYTES % (AUTO) 7.5 %; NEUTROPHILS # (AUTO) 5.4 10^3/uL (1.5-6.6); NEUTROPHILS % (AUTO) 66.7 %; PLT - PLATELET COUNT 166 10^3/uL (130-450); RED BLOOD COUNT 4.04 10^6/uL (4.70-6.10); RED CELL DISTRIBUTION WIDTH 14.6 % (12.0-15.0)
[2022-01-17 11:22] LABS: % IRON SATURATION 22 % (20-50); IRON 80 ug/dL (45-182); TOTAL IRON BINDING CAPACITY 370 ug/dL (250-450); TRANSFERRIN 264 mg/dL (180-329)
[2022-01-17 11:24] LABS: CRP - C-REACTIVE PROTEIN < 1.0 mg/dL (0-1.0)
[2022-01-17 11:32] LABS: THYROID STIMULATING HORMONE 5.19 uIU/mL (0.34-5.60)
[2022-01-17 11:39] LABS: FERRITIN 23.1 ng/mL (23.9-336.2)
== END 2022-01-17 10:44 | disposition home or self-care (01) ==
LOC: LAB 10:43
PROVIDERS: ATTEND Registered Nurse
DX: M25.50 Pain in unspecified joint (principal); D69.6 Thrombocytopenia, unspecified; E03.9 Hypothyroidism, unspecified
CPT/HCPCS: 36415; 82607; 82728; 82746; 83540; 84443; 84466; 85025; 85651; 86140

== ENCOUNTER 2022-04-04 13:25 | Outpatient (CLI) | payer MEDICARE, OTHER | END 2022-04-04 13:26 | disposition home or self-care (01) | LOC: LAB 13:25 | PROVIDERS: ATTEND Registered Nurse | DX: M35.3 Polymyalgia rheumatica (principal) | CPT/HCPCS: 36415; 85651; 86140 ==

== ENCOUNTER 2022-05-08 10:32 | Outpatient (CLI) | payer MEDICARE, OTHER | END 2022-05-08 10:33 | disposition home or self-care (01) | LOC: LAB 10:32 | PROVIDERS: ATTEND Registered Nurse | DX: M35.3 Polymyalgia rheumatica (principal) | CPT/HCPCS: 36415; 85651; 86140 ==

== ENCOUNTER 2022-07-17 15:40 | Outpatient (CLI) | payer MEDICARE, OTHER | END 2022-07-17 15:41 | disposition home or self-care (01) | LOC: LAB 15:40 | PROVIDERS: ATTEND Registered Nurse | DX: M35.3 Polymyalgia rheumatica (principal) | CPT/HCPCS: 36415; 85651; 86140 ==

== ENCOUNTER 2022-08-21 10:16 | Outpatient (CLI) | payer MEDICARE, OTHER | END 2022-08-21 10:17 | disposition home or self-care (01) | LOC: LAB 10:16 | PROVIDERS: ATTEND Registered Nurse | DX: M35.3 Polymyalgia rheumatica (principal) | CPT/HCPCS: 36415; 85651; 86140 ==

== ENCOUNTER 2022-08-28 10:14 | Outpatient (CLI) | payer MEDICARE, OTHER ==
--- NOTE | 2022-08-28 15:45 | XRAY Report ---
PROCEDURE: Toe(s) RT INDICATIONS: EVAL FOR OSETOMYELITIS TECHNIQUE: 3 views of the right toe(s) acquired. COMPARISON: 02/01/2021 FINDINGS: Bones: No fractures or dislocations. There are moderate degenerative changes at the first metatarsal phalangeal joint. Possible cortical loss along the distal lateral aspect of the first phalanx tuft. No definite deep erosive changes. No periostitis. No suspicious bony lesions. Soft tissues: No suspicious soft tissue densities. No soft tissue gas. IMPRESSION: 1. Subtle, questionable loss along the lateral tuft of the first distal phalanx. Correlate with ulcer site. 2. No definite periostitis or soft tissue gas. Reviewed by: Shweta Curtis MD on 08/28/2022 3:44 PM PST Approved by: Shweta Curtis MD on 08/28/2022 3:44 PM PST Station ID: [id number]
== END 2022-08-28 10:15 | disposition home or self-care (01) ==
LOC: DI 10:14
PROVIDERS: ATTEND Family Medicine
DX: G90.09 Other idiopathic peripheral autonomic neuropathy (principal)

== ENCOUNTER 2022-09-04 10:15 | Outpatient (CLI) | payer MEDICARE, OTHER ==
[2022-09-04 10:47] LABS: BILIRUBIN,URINE NEGATIVE (NEGATIVE); GLUCOSE, URINE (UA) NEGATIVE (NEGATIVE); KETONES,URINE (UA) NEGATIVE (NEGATIVE); LEUKOCYTE ESTERASE, URINE NEGATIVE (NEGATIVE); NITRITE,URINE NEGATIVE (NEGATIVE); OCCULT BLOOD,URINE NEGATIVE (NEGATIVE); PROTEIN,URINE NEGATIVE (NEGATIVE); UROBILINOGEN,URINE 0.2 (NORMAL) E.U./dL (NORMAL)
[2022-09-04 10:53] LABS: CLARITY,URINE CLEAR (CLEAR)
== END 2022-09-04 10:16 | disposition home or self-care (01) ==
LOC: LAB 10:15
PROVIDERS: ATTEND Registered Nurse
DX: R39.15 Urgency of urination (principal)
CPT/HCPCS: 81003; 84153; 87077; 87086; 87181

== ENCOUNTER 2022-09-26 10:54 | Outpatient (CLI) | payer MEDICARE, OTHER | END 2022-09-26 10:55 | disposition home or self-care (01) | LOC: LAB 10:54 | PROVIDERS: ATTEND Registered Nurse | DX: M35.3 Polymyalgia rheumatica (principal) | CPT/HCPCS: 36415; 85651; 86140 ==

== ENCOUNTER 2022-10-28 12:17 | Outpatient (CLI) | payer MEDICARE, OTHER ==
[2022-10-28 12:34] LABS: CREATININE 2.6 mg/dL (0.6-1.2); POTASSIUM 4.5 mmol/L (3.5-5.0)
== END 2022-10-28 12:18 | disposition home or self-care (01) ==
LOC: LAB 12:17
PROVIDERS: ATTEND Family Medicine
DX: Z79.2 Long term (current) use of antibiotics (principal)
CPT/HCPCS: 36415; 80048

== ENCOUNTER 2022-11-20 10:15 | Outpatient (CLI) | payer MEDICARE, OTHER | END 2022-11-20 10:16 | disposition home or self-care (01) | LOC: LAB 10:15 | PROVIDERS: ATTEND Registered Nurse | DX: R39.15 Urgency of urination (principal) | CPT/HCPCS: 36415; 84153 ==

== ENCOUNTER 2022-12-15 11:14 | Outpatient (CLI) | payer MEDICARE, OTHER | END 2022-12-15 11:15 | disposition home or self-care (01) | LOC: LAB 11:14 | PROVIDERS: ATTEND Registered Nurse | DX: M35.3 Polymyalgia rheumatica (principal) | CPT/HCPCS: 36415; 85651; 86140 ==

== ENCOUNTER 2023-10-22 12:06 | Outpatient (CLI) | payer MEDICARE, OTHER | END 2023-10-22 12:07 | disposition home or self-care (01) | LOC: LAB 12:06 | PROVIDERS: ATTEND Family Medicine | DX: E87.5 Hyperkalemia (principal); T37.0X5A Adverse effect of sulfonamides, initial encounter; L27.0 Generalized skin eruption due to drugs and medicaments taken internally ==

== ENCOUNTER 2024-02-29 15:43 | Outpatient (CLI) | payer MEDICARE, OTHER ==
--- NOTE | 2024-03-01 09:31 | XRAY Report ---
PROCEDURE: Foot 1-2V RT INDICATIONS: TOE INFECTION TECHNIQUE: 2 views of the foot were acquired. COMPARISON: 05/26/2023, MRI 08/13/2023 FINDINGS: Bones: No acute fractures. 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 Moderate asymmetric fir st MTP joint space loss and lateral spur formation. No visible cortical erosion or periostitis. Smal l plantar calcaneal spurs. No suspicious bony lesions. Soft tissues: No tibiotalar joint effusion. Achilles tendon appears normal. No soft tissue gas or radiodense foreign bodies. IMPRESSION: No foreign bodies or soft tissue gas in the third digit. No radiographic evidence of underlying osteomyelitis although radiographs are insensitive. 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 Reviewed by: Shweta Curtis MD on 03/01/2024 9:30 AM PDT Approved by: Shweta Curtis MD on 03/01/2024 9:30 AM PDT Station ID: [id number]
== END 2024-02-29 15:44 | disposition home or self-care (01) ==
LOC: DI 15:43
PROVIDERS: ATTEND Nurse Practitioner Family
DX: L08.9 Local infection of the skin and subcutaneous tissue, unspecified (principal); M19.071 Primary osteoarthritis, right ankle and foot; Z12.5 Encounter for screening for malignant neoplasm of prostate
CPT/HCPCS: 36415; 73620; G0103; 84153

== ENCOUNTER 2024-03-10 08:00 | Outpatient (CLI) | payer MEDICARE, OTHER | END 2024-03-10 23:59 | disposition home or self-care (01) | LOC: LAB 08:00 | PROVIDERS: ATTEND Nurse Practitioner Family | DX: L08.9 Local infection of the skin and subcutaneous tissue, unspecified (principal) | CPT/HCPCS: 87070; 87077; 87181; 87205 ==

== ENCOUNTER 2024-03-11 14:10 | Outpatient (CLI) | payer MEDICARE, OTHER ==
[2024-03-11] MEDS ORDERED: GADOTERATE MEGLUMINE 10 MMOL/20 ML VIAL ONE (15:26)
[2024-03-11 15:47] LABS: CREATININE 2.1 mg/dL (0.6-1.3)
--- NOTE | 2024-03-11 17:40 | MRI Report ---
PROCEDURE: Foot RT W/WO INDICATIONS: OSTEOMYELITIS OF FOOT CONTRAST: CLARISCAN 17.4 ML TECHNIQUE: Noncontrast sagittal T1 spin echo and T2 fast spin echo with fat saturation, long-axis T1 spin echo a nd T2 fast spin echo with fat saturation; short-axis T1 spin echo, proton density fast spin echo, and T2 fast spin echo with fat saturation through the forefoot. Post-contrast short axis, long axis, an d sagittal T1 spin echo with fat saturation through the forefoot. COMPARISON: 08/13/2023 and right foot radiograph dated 02/29/2024, 05/26/2023. FINDINGS: Image quality: Excellent. Bones and joints: Edema involving third distal phalangeal tuft is seen significantly decreased in ext ent compared to 08/13/2023 study suggestive of healing osteomyelitis and small amount of residual disea se. Heterogeneous contrast enhancement is noted at the area of edema. No new area of abnormal marrow signal or enhancement. No acute fracture or dislocation. Osteoarthritic changes are noted throughout midfoot and forefoot most notably involving first MTP joint unchanged from prior study.. Soft tissues: There is mild soft tissue swelling around distal portion of third toe. No discrete uter ine no peripherally enhancing fluid collection is seen. No enhancing soft tissue mass. Mild edema in the visualized plantar foot muscles are seen suggestive of mild myositis. No intramuscular fluid ken ection or enhancing mass. Extensor and flexor tendons are intact. Principal Lisfranc ligament is inta ct. IMPRESSION: 1. Suggestion of residual osteomyelitis involving third distal phalangeal tuft and distal shaft impro giulia compared to 08/13/2023 study. No pathologic fracture. No new area of osteomyelitis. 2. 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 No metatarsal st ress fractures. 3. Cellulitis involving distal portion of third toe. Mild myositis involving plantar foot muscles. No discrete drainable abscess collection. No enhancing soft tissue mass. Reviewed by: Lenin Chance MD on 03/11/2024 5:38 PM PDT Approved by: Lenin Chance MD on 03/11/2024 5:38 PM PDT Station ID: [id number]
== END 2024-03-11 14:11 | disposition home or self-care (01) ==
LOC: LAB 14:10
PROVIDERS: ATTEND Nurse Practitioner Family
DX: M86.8X7 Other osteomyelitis, ankle and foot (principal); M19.071 Primary osteoarthritis, right ankle and foot; L03.031 Cellulitis of right toe
CPT/HCPCS: 36415; 73720; 82565; A9575

== ENCOUNTER 2024-04-01 13:12 | Outpatient (CLI) | payer MEDICARE, OTHER ==
[2024-04-01 13:44] LABS: ALBUMIN 3.9 g/dL (3.2-5.5); ALBUMIN/GLOBULIN RATIO 1.4 (1.0-2.2); BILIRUBIN,TOTAL 0.5 mg/dL (0.2-1.0); CALCIUM 9.5 mg/dL (8.5-10.3); POTASSIUM 5.3 mmol/L (3.5-4.5); TOTAL PROTEIN 6.6 g/dL (6.4-8.9)
== END 2024-04-01 13:13 | disposition home or self-care (01) ==
LOC: LAB 13:12
PROVIDERS: ATTEND Nurse Practitioner Family
DX: E53.8 Deficiency of other specified B group vitamins (principal); R79.89 Other specified abnormal findings of blood chemistry
CPT/HCPCS: 36415; 80053; 82607